=== PATIENT | female | born 1965 | race Caucasian/White ===

== ENCOUNTER 2017-09-11 13:59 | Outpatient (CLI) | payer MEDICARE ==
--- NOTE | 2017-09-11 15:43 | SJPRAD ---
AP PELVIS: 09/11/17 HISTORY: Low back pain. The pelvic ring is intact. There is some minimal arthritic changes of the lower lumbar spine and some mild arthritic changes of the symphysis. SI joints are symmetric. IMPRESSION: No acute findings. POS: [facility]
--- NOTE | 2017-09-11 15:43 | SJPRAD ---
LUMBAR SPINE SERIES THREE VIEWS: History: Low back pain. FINDINGS: Vertebral bodies are normal in height. There are degenerative osteophytes along the course of the spi ne. There is mild disc narrowing at L5-S1, also some mild to moderate disc narrowing at L2-3 with ret rolisthesis of 4 mm. There are degenerative facet changes. Pedicles are intact. IMPRESSION: Mild to moderate arthritic changes of the spine. POS: [facility]
== END 2017-09-11 14:00 | disposition home or self-care (01) ==
LOC: MWLC RAD 13:59
PROVIDERS: ATTEND Family Medicine
DX: M54.5 Low back pain (principal); M46.96 Unspecified inflammatory spondylopathy, lumbar region

== ENCOUNTER 2018-06-03 12:27 | Outpatient (CLI) | payer MEDICARE | END 2018-06-03 12:28 | disposition home or self-care (01) | LOC: BICRAD 12:27 | PROVIDERS: ATTEND Family Medicine | DX: M54.5 Low back pain (principal); M79.1 Myalgia; M47.898 Other spondylosis, sacral and sacrococcygeal region | CPT/HCPCS: 72100; 72202 ==

== ENCOUNTER 2021-01-06 14:53 | Emergency (ER) | payer MEDICARE ==
[2021-01-06] MEDS ORDERED: Meclizine HCl 25 MG TAB ONE ×2 (15:42→15:43)
[2021-01-06 16:38] LABS: #Eosinphils 0.1 thou/uL (0.0-0.7); #Lymphocytes 2.1 thou/uL (1.20-3.40); #Monocytes 0.7 thou/uL (0.11-0.59); #Neutrophils 9.6 thou/uL (1.40-6.50); %Basophils 0.1 % (0.0-1.0); %Eosinophils 1.2 % (0.0-10.0); %Lymphocytes 16.7 % (21.0-51.0); %Monocytes 5.2 % (0.0-10.0); %Neutrophils 76.9 % (42.0-75.0); Hemoglobin 14.5 g/dL (12.0-16.0); Mean Corpuscular HGB CONC 34.2 g/dL (32.0-36.0); Mean Corpuscular Hemoglobin 32.7 pg (27.0-31.0); Mean Corpuscular Volume 95.4 fL (78.0-98.0); Mean Platelet Volume 7.5 fL (7.4-10.4); Platelet Count 205 thou/uL (130-400); RBC Distribution Width 11.6 % (11.5-14.5); Red Blood Cell (RBC) Count 4.44 mill/uL (4.20-5.40); White Blood Cell (WBC) Count 12.4 thou/uL (4.8-10.8)
[2021-01-06 16:43] LABS: PTT 23.7 sec (22.9-36.1); Prothrombin Time 12.8 sec (12.0-14.7)
[2021-01-06 17:01] LABS: ALT (SGPT) 47 U/L (8-55); AST (SGOT) 36 U/L (5-34); Albumin 4.3 g/dL (3.5-5.0); Alkaline Phosphatase 68 U/L (40-110); Anion Gap 13 mmol/L (10-20); BUN (Urea Nitrogen) 15 mg/dL (9.8-20.1); Bilirubin, Total 0.4 mg/dL (0.2-1.2); Calc. Creatinine Clearance 0 mL/min (70-130); Calcium 9.2 mg/dL (7.8-10.44); Carbon Dioxide 23 mmol/L (22-29); Chloride 104 mmol/L (98-107); Glucose 152 mg/dL (70-105); Magnesium 1.8 mg/dL (1.6-2.6); Potassium 3.9 mmol/L (3.5-5.1); Protein, Total 7.3 g/dL (6.0-8.3); Sodium 136 mmol/L (136-145)
== END 2021-01-06 18:45 | disposition home or self-care (01) ==
LOC: ERS 14:53
DX: R42 Dizziness and giddiness (principal); I10 Essential (primary) hypertension; E78.5 Hyperlipidemia, unspecified; F17.210 Nicotine dependence, cigarettes, uncomplicated; Z79.899 Other long term (current) drug therapy
CPT/HCPCS: 36415; 70450; 71045; 80053; 83735; 85025; 85610; 85730; 93005